=== PATIENT | female | born 1995 | race Caucasian/White ===

== ENCOUNTER 2018-10-08 07:18 | Emergency (ER) | payer BC ==
[~2018-10-08] VITALS: Ht 167.6 cm; Wt 64.4 kg
[2018-10-08] MEDS ORDERED: PROAIR HFA8.5 GM INH (07:28)
[2018-10-08] MEDS ORDERED: QVAR7.3 GM INH (07:28)
[2018-10-08] MEDS ORDERED: ISIBLOOM ORAL (07:28)
[2018-10-08] MEDS ORDERED: LEXAPRO20 MG ORAL (07:28)
[2018-10-08 07:32] VITALS: BP 118/62
--- NOTE | 2018-10-08 07:33 | Emergency Room Report ---
History of Present Illness General Chief Complaint: Nausea Source: Patient Present Illness HPI Patient is a 23-year-old female presented after increased nausea and vomiting. Patient reports having increased nausea and vomiting after drinking alcohol. She denies any hematemesis. She reports having some mild epigastric discomfort. She denies having any hematemesis or bloody stools. Patient reports having some slight diarrhea. She denies any dizziness. Patient states she does not drink regularly.Patient has prior history of asthma but does not have any current complaints regarding breathing. Allergies: Coded Allergies: No Known Allergies (Unverified , 10/08/18) Patient History Past Medical History: see triage record Last Menstrual Period: 10/01/2018 Reviewed Nursing Documentation: PMH: Agreed; PSxH: Agreed Nursing Documentation-PMH Past Medical History: No History, Except For Hx Asthma: Yes Review of Systems All Other Systems: negative except mentioned in HPI Physical Exam Vital Signs Date Time Temp Pulse Resp B/P (MAP) Pulse Ox O2 Delivery O2 Flow Rate FiO2 10/08/18 07:22 98.1 60 14 118/62 96 Room Air General Appearance: well appearing, no apparent distress, alert, GCS 15 Head: normocephalic, atraumatic ENT: hearing grossly normal, normal voice Neck: full range of motion, supple Respiratory: chest non-tender, no respiratory distress, speaking full sentences Gastrointestinal: normal inspection Musculoskeletal: normal inspection Neurologic: alert, oriented x3, responsive, normal gait Psychiatric: normal inspection, judgement/insight normal, mood/affect normal Skin: no rash Medical Decision Making Diagnostic Impression: Primary Impression: Nausea and vomiting in adult patient ER Course Patient presented for nausea and vomiting. Differential diagnosis include was not limited to gastritis, pancreatitis, alcohol intoxication among others. Patient has a benign exam and does not appear to require any further imaging or laboratory testing at this time. Patient was noted to have no evidence of acute abdomen. Patient appears to have alcohol related nausea. Patient did not have any appreciable abdominal tenderness.Patient was given Zofran. She does not appear to be actively vomiting while in the emergency department. Patient was advised to follow-up with her primary care physician for recheck. Last Vital Signs Date Time Temp Pulse Resp B/P (MAP) Pulse Ox O2 Delivery O2 Flow Rate FiO2 10/08/18 07:22 98.1 60 14 118/62 96 Room Air Status: improved Disposition: HOME, SELF-CARE Condition: Stable Scripts Ondansetron (Zofran) 4 Mg Tablet 4 MG ORAL Q6H PRN for Nausea & Vomiting, #14 TAB 0 Refills Prov: Noah Rayo MD 10/08/18 Noah Rayo MD Oct 08, 2018 07:33
[2018-10-08] MEDS ORDERED: ZOFRAN4 MG ORAL (07:35)
--- NOTE | 2018-10-08 07:38 | NUR ---
ED Nurse Note: pt walked in to ED due to nausea and vomiting since last night after drank 3 glasses of wine. per pt, had 2 episodes of vomiting. feeling still nausea. no diarrhea. AAO x4. respirations even and non-labored noted. will wait for the further order.
--- NOTE | 2018-10-08 07:45 | NUR ---
ED Nurse Note: urine sample sent.
[2018-10-08 08:00] VITALS: BP 118/62
--- NOTE | 2018-10-08 08:01 | NUR ---
ER DISCHARGE NOTE: Patient is cleared to be discharged per ERMD, pt is aox4, on room air, with stable vital signs. pt was given dc and prescription instructions, pt was able to verbalize understanding, pt id band removed. pt is able to ambulate with steady gait. pt took all belongings.
[2018-10-08 08:10] LABS: APPEARANCE,URINE CLEAR; BILIRUBIN, URINE NEGATIVE (NEGATIVE); GLUCOSE, URINE (UA) NEGATIVE (NEGATIVE); KETONES,URINE NEGATIVE (NEGATIVE); LEUKOCYTE ESTERASE ,URINE 1+ (NEGATIVE); NITRITE,URINE NEGATIVE (NEGATIVE); PH,URINE 7 (4.5-8.0); PROTEIN,URINE NEGATIVE (NEGATIVE); UROBILINOGEN,URINE NORMAL MG/DL (0.0-1.0)
[2018-10-08 08:21] LABS: COLOR,URINE YELLOW
== END 2018-10-08 08:01 | disposition home or self-care (01) ==
LOC: EMR 07:47
DX: R11.2 Nausea with vomiting, unspecified (principal); J45.909 Unspecified asthma, uncomplicated
CPT/HCPCS: 81003; 81025; 99282

== ENCOUNTER 2019-05-01 21:16 | Emergency (ER) | payer BC ==
[~2019-05-01] VITALS: Ht 170.2 cm; Wt 65.8 kg
[~2019-05-01 21:16] MED LIST: ISIBLOOM ORAL; LEXAPRO20 MG ORAL; PROAIR HFA8.5 GM INH; QVAR7.3 GM INH; ZOFRAN4 MG ORAL
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
[2019-05-01] MEDS ORDERED: IBUPROFEN600 MG ORAL (22:09)
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
--- NOTE | 2019-05-01 22:15 | NUR ---
ER DISCHARGE NOTE: Patient is cleared to be discharged per ERMD, pt is aox4, on room air, with stable vital signs. pt was given dc and prescription instructions, pt was able to verbalize understanding, pt id band removed without complications. pt is able to ambulate with steady gait. pt took all belongings.
--- NOTE | 2019-05-01 22:15 | Diagnostic Imaging Report ---
Indication: Headache Technique: Contiguous 5 mm thick transaxial imaging of the head obtained in a Siemens Sensation [address] scanner. Soft tissue and bone windows generated. Automatic Exposure Control was utilized. Total Dose length Product (DLP): [address] Dose Index Volume (CTDIvol): 60 mGy Comparison: none Findings: The size and configuration of the cortical sulci, basal cisterns, and ventricles are within normal limits for age. There is no mass effect, midline shift, or edema identified. There is no evidence of acute hemorrhage or abnormal intra-axial or extra-axial fluid collections. The bones and soft tissues are unremarkable. Impression: No mass effect, edema or acute bleed. [facility] has communicated the preliminary results to the Emergency Department. Their findings are largely concordant with this report. The CT scanner at [facility] is accredited by the [employer] and the scans are performed using dose optimization techniques as appropriate to a performed exam including Automatic Exposure control.
[2019-05-01 22:17] VITALS: BP 116/81
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
== END 2019-05-01 22:15 | disposition home or self-care (01) ==
LOC: EMR 21:41
DX: S09.90XA Unspecified injury of head, initial encounter (principal); J45.909 Unspecified asthma, uncomplicated; W22.09XA Striking against other stationary object, initial encounter; Y92.22 Religious institution as the place of occurrence of the external cause
CPT/HCPCS: 70450; 99284